=== PATIENT | male | born 1955 | race Caucasian/White ===

== ENCOUNTER 2020-02-25 14:15 | Inpatient (IN) ==
[2020-02-25] MEDS ORDERED: SODIUM CHLORIDE 0.9% 1,000 ML IV STA (15:02)
[2020-02-25 15:26] LABS: Basophils # 0.1 10*3/uL (0.0-0.2); Basophils % 0.6 % (0.0-0.8); Eosinophils # 0.5 10*3/uL (0.0-0.87); Eosinophils % 3.7 % (0.00-10.9); Hematocrit 43.9 VOL% (42.0-52.0); Hemoglobin 14.7 GM/DL (14.0-18.0); Immature Granulocytes % 2.3 %; Immature Granulocytes Absolute 0.29 #; Lymphocytes # 2.3 10*3/uL (1.4-4.0); Lymphocytes % 18.2 % (21.2-54.2); Mean Corpuscular HGB Conc 33.5 GM/DL (32-36); Mean Corpuscular Volume 91.5 FL (87-102); Mean Platelet Volume 10.9 FL (9.6-12.0); Monocytes % 10.2 % (1.7-12.7); Platelet Count 436 T/CUMM (130-400); Red Cell Distribution Width 13.7 % (9.3-17.3); White Blood Count 12.4 T/CUMM (4-12)
[2020-02-25 16:15] LABS: Albumin 2.2 G/DL (3.4-5.0); Bilirubin,Total 0.6 MG/DL (0.2-1.0); Calcium 8.3 MG/DL (8.5-10.1); Ferritin 1001.1 ng/ml (26-388); Potassium 4.4 MMOL/L (3.5-5.1); Total Protein 6.8 G/DL (6.4-8.3)
[2020-02-25] MEDS ORDERED: AZITHROMYCIN INJ 500 MG in SODIUM CHLORIDE 0.9% 250 ML IV ONE (17:33)
[2020-02-25] MEDS ORDERED: DEXAMETHASONE 10 MG/1 ML VIAL IV STA (17:38)
[2020-02-25] MEDS ORDERED: ACETAMINOPHEN 325 MG TABLET PO PRN (17:40)
[2020-02-25] MEDS ORDERED: MAGNESIUM HYDROXIDE SUSP 30 ML UDCUP PO PRN (17:40)
[2020-02-25] MEDS ORDERED: GLUCAGON 1 MG VIAL IM PRN (17:43)
[2020-02-25] MEDS ORDERED: ALBUTEROL 2.5 MG/3 ML NEB RESP TX PRN (17:43)
[2020-02-25] MEDS ORDERED: ONDANSETRON 4 MG/2 ML VIAL IV PRN (17:43)
[2020-02-25] MEDS ORDERED: DEXTROSE 50% 25 GM/50 ML VIAL IV PRN (17:43)
[2020-02-25] MEDS ORDERED: ENOXAPARIN 40 MG/0.4 ML SYRINGE SUBCUT SCH (18:00)
[2020-02-25] MEDS: ALBUTEROL/IPRATROPIUM 3 ML NEB RESP TX SCH (19:45)
[2020-02-25] MEDS: GABAPENTIN 100 MG CAPSULE PO SCH (20:28)
[2020-02-25] MEDS: ASCORBIC ACID 500 MG TABLET PO SCH (20:28)
[2020-02-25] MEDS: FAMOTIDINE 20 MG TABLET PO SCH (20:28)
[2020-02-25] MEDS: DOXYCYCLINE HYCLATE INJ 100 MG in SODIUM CHLORIDE 0.9% 100 ML IV SCH (20:29)
[2020-02-25] MEDS ORDERED: ENOXAPARIN 100 MG/ML SYRINGE SUBCUT SCH (21:00)
[2020-02-25] MEDS ORDERED: NON-FORMULARY MEDICATION (Amino Acids-Protein Hydrolys [Pro-Stat Sugar Free] 15-100 gram-k PO SCH (21:00)
[2020-02-26] MEDS: ALBUTEROL/IPRATROPIUM 3 ML NEB RESP TX SCH ×4 (01:43→19:39)
[2020-02-26 05:44] LABS: Basophils % 0.4 % (0.0-0.8); Eosinophils # 0.4 10*3/uL (0.0-0.87); Eosinophils % 3.7 % (0.00-10.9); Hematocrit 41.2 VOL% (42.0-52.0); Hemoglobin 13.6 GM/DL (14.0-18.0); Immature Granulocytes % 1.9 %; Immature Granulocytes Absolute 0.21 #; Lymphocytes # 2.2 10*3/uL (1.4-4.0); Lymphocytes % 20.1 % (21.2-54.2); Mean Corpuscular Volume 92.6 FL (87-102); Mean Platelet Volume 10.5 FL (9.6-12.0); Monocytes % 10.7 % (1.7-12.7); Neutrophils % 63.2 % (38.7-73.9); Platelet Count 434 T/CUMM (130-400); Red Blood Count 4.45 MC/CUMM (3.8-5.5); Red Cell Distribution Width 13.7 % (9.3-17.3); White Blood Count 10.9 T/CUMM (4-12)
[2020-02-26 06:04] LABS: Calcium 8.2 MG/DL (8.5-10.1); Osmolality,Calculated 276.7 MOS/KG (273-304); Potassium 4.2 MMOL/L (3.5-5.1)
[2020-02-26] MEDS ORDERED: FUROSEMIDE 40 MG/4 ML VIAL IV ONE (08:30)
[2020-02-26] MEDS ORDERED: RAMIPRIL 10 MG PO SCH (09:00)
[2020-02-26] MEDS: ZINC GLUCONATE 50 MG TABLET PO SCH (09:41)
[2020-02-26] MEDS: DOCUSATE SODIUM 100 MG CAPSULE PO SCH (09:41)
[2020-02-26] MEDS: FINASTERIDE 5 MG TABLET PO SCH (09:42)
[2020-02-26] MEDS: ASPIRIN EC 81 MG TABLET PO SCH (09:42)
[2020-02-26] MEDS: GABAPENTIN 100 MG CAPSULE PO SCH ×4 (09:42→20:07)
[2020-02-26] MEDS: SENNA 8.6 MG TABLET PO SCH (09:42)
[2020-02-26] MEDS: FAMOTIDINE 20 MG TABLET PO SCH ×2 (09:42→20:07)
[2020-02-26] MEDS: CALCIUM (CARBONATE)/VITAMIN D 500 MG-200 UNIT TABLET PO SCH (09:42)
[2020-02-26] MEDS: ESCITALOPRAM 10 MG TABLET PO SCH (09:43)
[2020-02-26] MEDS: CHOLECALCIFEROL 1,000 UNIT TABLET PO SCH (09:43)
[2020-02-26] MEDS: CETIRIZINE 10 MG TABLET PO SCH (09:43)
[2020-02-26] MEDS: ATORVASTATIN 20 MG TABLET PO SCH (09:43)
[2020-02-26] MEDS: DEXAMETHASONE 4 MG/1 ML VIAL IV SCH (09:44)
[2020-02-26] MEDS: TAMSULOSIN 0.4 MG CAPSULE PO SCH (09:44)
[2020-02-26] MEDS: ASCORBIC ACID 500 MG TABLET PO SCH ×2 (09:44→20:07)
[2020-02-26] MEDS: ENOXAPARIN 40 MG/0.4 ML SYRINGE SUBCUT SCH ×2 (09:46→20:07)
[2020-02-26] MEDS: DONEPEZIL 10 MG TABLET PO SCH (10:05)
[2020-02-26] MEDS: MEMANTINE 10 MG TABLET PO SCH ×2 (10:05→20:07)
[2020-02-26] MEDS: DOXYCYCLINE HYCLATE INJ 100 MG in SODIUM CHLORIDE 0.9% 100 ML IV SCH ×2 (10:10→20:08)
[2020-02-27] MEDS: ALBUTEROL/IPRATROPIUM 3 ML NEB RESP TX SCH ×4 (00:30→20:17)
[2020-02-27 05:33] LABS: Basophils % 0.2 % (0.0-0.8); Eosinophils # 0.1 10*3/uL (0.0-0.87); Eosinophils % 1.1 % (0.00-10.9); Hematocrit 43.2 VOL% (42.0-52.0); Hemoglobin 14.4 GM/DL (14.0-18.0); Immature Granulocytes % 1.2 %; Immature Granulocytes Absolute 0.15 #; Mean Corpuscular HGB Conc 33.3 GM/DL (32-36); Mean Corpuscular Volume 91.1 FL (87-102); Mean Platelet Volume 10.5 FL (9.6-12.0); Monocytes % 9.3 % (1.7-12.7); Neutrophils % 72.2 % (38.7-73.9); Platelet Count 450 T/CUMM (130-400); Red Blood Count 4.74 MC/CUMM (3.8-5.5); Red Cell Distribution Width 13.6 % (9.3-17.3); White Blood Count 12.7 T/CUMM (4-12)
[2020-02-27 06:00] LABS: Platelet Estimate Normal
[2020-02-27 06:01] LABS: Anisocytosis Slight
[2020-02-27 06:08] LABS: Calcium 9.3 MG/DL (8.5-10.1)
[2020-02-27] MEDS: ENOXAPARIN 40 MG/0.4 ML SYRINGE SUBCUT SCH ×2 (09:37→21:39)
[2020-02-27] MEDS: ESCITALOPRAM 10 MG TABLET PO SCH (09:37)
[2020-02-27] MEDS: ZINC GLUCONATE 50 MG TABLET PO SCH (09:37)
[2020-02-27] MEDS: ASPIRIN EC 81 MG TABLET PO SCH (09:38)
[2020-02-27] MEDS: SENNA 8.6 MG TABLET PO SCH (09:38)
[2020-02-27] MEDS: CHOLECALCIFEROL 1,000 UNIT TABLET PO SCH (09:38)
[2020-02-27] MEDS: DOCUSATE SODIUM 100 MG CAPSULE PO SCH (09:39)
[2020-02-27] MEDS: CALCIUM (CARBONATE)/VITAMIN D 500 MG-200 UNIT TABLET PO SCH (09:39)
[2020-02-27] MEDS: FAMOTIDINE 20 MG TABLET PO SCH ×2 (09:39→21:36)
[2020-02-27] MEDS: FINASTERIDE 5 MG TABLET PO SCH (09:39)
[2020-02-27] MEDS: GABAPENTIN 100 MG CAPSULE PO SCH ×4 (09:40→21:36)
[2020-02-27] MEDS: ATORVASTATIN 20 MG TABLET PO SCH (09:40)
[2020-02-27] MEDS: CETIRIZINE 10 MG TABLET PO SCH (09:40)
[2020-02-27] MEDS: DEXAMETHASONE 4 MG/1 ML VIAL IV SCH (09:40)
[2020-02-27] MEDS: MEMANTINE 10 MG TABLET PO SCH ×2 (09:40→21:36)
[2020-02-27] MEDS: TAMSULOSIN 0.4 MG CAPSULE PO SCH (09:40)
[2020-02-27] MEDS: DONEPEZIL 10 MG TABLET PO SCH (09:40)
[2020-02-27] MEDS: ASCORBIC ACID 500 MG TABLET PO SCH ×2 (09:40→21:36)
[2020-02-27] MEDS: DOXYCYCLINE HYCLATE INJ 100 MG in SODIUM CHLORIDE 0.9% 100 ML IV SCH ×2 (09:45→21:40)
[2020-02-28] MEDS: ALBUTEROL/IPRATROPIUM 3 ML NEB RESP TX SCH ×4 (01:50→18:46)
[2020-02-28 04:10] LABS: Basophils % 0.2 % (0.0-0.8); Eosinophils % 0.2 % (0.00-10.9); Hemoglobin 13.8 GM/DL (14.0-18.0); Immature Granulocytes % 1.1 %; Immature Granulocytes Absolute 0.13 #; Lymphocytes # 1.5 10*3/uL (1.4-4.0); Mean Corpuscular HGB Conc 32.9 GM/DL (32-36); Mean Corpuscular Volume 92.3 FL (87-102); Mean Platelet Volume 10.5 FL (9.6-12.0); Monocytes % 9.5 % (1.7-12.7); Platelet Count 373 T/CUMM (130-400); Red Blood Count 4.55 MC/CUMM (3.8-5.5); Red Cell Distribution Width 13.3 % (9.3-17.3); White Blood Count 12.4 T/CUMM (4-12)
[2020-02-28 04:27] LABS: Calcium 8.7 MG/DL (8.5-10.1); Potassium 4.6 MMOL/L (3.5-5.1)
[2020-02-28] MEDS: ENOXAPARIN 40 MG/0.4 ML SYRINGE SUBCUT SCH ×2 (10:08→21:37)
[2020-02-28] MEDS: DEXAMETHASONE 4 MG/1 ML VIAL IV SCH (10:08)
[2020-02-28] MEDS: SENNA 8.6 MG TABLET PO SCH (10:11)
[2020-02-28] MEDS: ZINC GLUCONATE 50 MG TABLET PO SCH (10:11)
[2020-02-28] MEDS: CHOLECALCIFEROL 1,000 UNIT TABLET PO SCH (10:11)
[2020-02-28] MEDS: CALCIUM (CARBONATE)/VITAMIN D 500 MG-200 UNIT TABLET PO SCH (10:11)
[2020-02-28] MEDS: ASPIRIN EC 81 MG TABLET PO SCH (10:12)
[2020-02-28] MEDS: DOCUSATE SODIUM 100 MG CAPSULE PO SCH (10:12)
[2020-02-28] MEDS: MEMANTINE 10 MG TABLET PO SCH ×2 (10:12→21:35)
[2020-02-28] MEDS: FAMOTIDINE 20 MG TABLET PO SCH ×2 (10:12→21:35)
[2020-02-28] MEDS: TAMSULOSIN 0.4 MG CAPSULE PO SCH (10:12)
[2020-02-28] MEDS: FINASTERIDE 5 MG TABLET PO SCH (10:12)
[2020-02-28] MEDS: ESCITALOPRAM 10 MG TABLET PO SCH (10:12)
[2020-02-28] MEDS: ASCORBIC ACID 500 MG TABLET PO SCH ×2 (10:13→21:35)
[2020-02-28] MEDS: DONEPEZIL 10 MG TABLET PO SCH (10:13)
[2020-02-28] MEDS: GABAPENTIN 100 MG CAPSULE PO SCH ×4 (10:13→21:35)
[2020-02-28] MEDS: ATORVASTATIN 20 MG TABLET PO SCH (10:13)
[2020-02-28] MEDS: CETIRIZINE 10 MG TABLET PO SCH (10:13)
[2020-02-28] MEDS: DOXYCYCLINE HYCLATE INJ 100 MG in SODIUM CHLORIDE 0.9% 100 ML IV SCH ×2 (10:24→21:41)
[2020-02-29] MEDS: ALBUTEROL/IPRATROPIUM 3 ML NEB RESP TX SCH ×3 (01:41→15:28)
[2020-02-29 05:59] LABS: Basophils % 0.1 % (0.0-0.8); Eosinophils % 0.3 % (0.00-10.9); Hematocrit 38.4 VOL% (42.0-52.0); Hemoglobin 12.8 GM/DL (14.0-18.0); Immature Granulocytes % 0.6 %; Immature Granulocytes Absolute 0.09 #; Lymphocytes # 1.8 10*3/uL (1.4-4.0); Lymphocytes % 12.8 % (21.2-54.2); Mean Corpuscular HGB Conc 33.3 GM/DL (32-36); Mean Corpuscular Volume 91.4 FL (87-102); Mean Platelet Volume 10.3 FL (9.6-12.0); Monocytes % 9.8 % (1.7-12.7); Neutrophils % 76.4 % (38.7-73.9); Platelet Count 337 T/CUMM (130-400); Red Cell Distribution Width 13.3 % (9.3-17.3); White Blood Count 14.2 T/CUMM (4-12)
[2020-02-29 06:28] LABS: Calcium 8.5 MG/DL (8.5-10.1); Osmolality,Calculated 275.7 MOS/KG (273-304); Potassium 4.1 MMOL/L (3.5-5.1)
[2020-02-29 06:53] LABS: Platelet Estimate Adequate
[2020-02-29] MEDS: DEXAMETHASONE 4 MG/1 ML VIAL IV SCH (09:47)
[2020-02-29] MEDS: MEMANTINE 10 MG TABLET PO SCH (09:52)
[2020-02-29] MEDS: SENNA 8.6 MG TABLET PO SCH (09:52)
[2020-02-29] MEDS: ENOXAPARIN 40 MG/0.4 ML SYRINGE SUBCUT SCH (09:52)
[2020-02-29] MEDS: FAMOTIDINE 20 MG TABLET PO SCH (09:52)
[2020-02-29] MEDS: ESCITALOPRAM 10 MG TABLET PO SCH (09:52)
[2020-02-29] MEDS: DOCUSATE SODIUM 100 MG CAPSULE PO SCH (09:52)
[2020-02-29] MEDS: ASPIRIN EC 81 MG TABLET PO SCH (09:53)
[2020-02-29] MEDS: CETIRIZINE 10 MG TABLET PO SCH (09:53)
[2020-02-29] MEDS: ASCORBIC ACID 500 MG TABLET PO SCH (09:53)
[2020-02-29] MEDS: DONEPEZIL 10 MG TABLET PO SCH (09:53)
[2020-02-29] MEDS: CALCIUM (CARBONATE)/VITAMIN D 500 MG-200 UNIT TABLET PO SCH (09:53)
[2020-02-29] MEDS: ZINC GLUCONATE 50 MG TABLET PO SCH (09:53)
[2020-02-29] MEDS: FINASTERIDE 5 MG TABLET PO SCH (09:53)
[2020-02-29] MEDS: GABAPENTIN 100 MG CAPSULE PO SCH ×3 (09:53→16:10)
[2020-02-29] MEDS: TAMSULOSIN 0.4 MG CAPSULE PO SCH (09:53)
[2020-02-29] MEDS: CHOLECALCIFEROL 1,000 UNIT TABLET PO SCH (09:53)
[2020-02-29] MEDS: ATORVASTATIN 20 MG TABLET PO SCH (09:53)
[2020-02-29] MEDS: DOXYCYCLINE HYCLATE INJ 100 MG in SODIUM CHLORIDE 0.9% 100 ML IV SCH (09:54)
[2020-02-29] MEDS ORDERED: predniSONE 20 MG TABLET PO SCH (10:00)
[2020-02-29 16:28] VITALS: BP 126/80
[2020-03-03] MEDS ORDERED: ERGOCALCIFEROL 50,000 UNIT CAPSULE PO SCH (09:00)
== END 2020-02-29 16:34 | DRG 193 ==
LOC: N.ED 14:15 → N.EDINP 17:31 → SUATTDRO 17:31 → N.3E 18:28
PROVIDERS: ADMIT Internal Medicine; ATTEND Internal Medicine

== ENCOUNTER 2020-05-10 12:19 | Inpatient (IN) ==
[2020-05-10 15:11] LABS: Basophils # 0.1 10*3/uL (0.0-0.2); Basophils % 0.5 % (0.0-0.8); Eosinophils # 0.1 10*3/uL (0.0-0.87); Eosinophils % 0.4 % (0.00-10.9); Hematocrit 43.9 VOL% (42.0-52.0); Hemoglobin 13.8 GM/DL (14.0-18.0); Immature Granulocytes % 0.6 %; Lymphocytes # 1.2 10*3/uL (1.4-4.0); Lymphocytes % 7.3 % (21.2-54.2); Mean Corpuscular HGB Conc 31.4 GM/DL (32-36); Mean Corpuscular Volume 97.6 FL (87-102); Mean Platelet Volume 11.4 FL (9.6-12.0); Monocytes % 7.7 % (1.7-12.7); Neutrophils % 83.5 % (38.7-73.9); Platelet Count 253 T/CUMM (130-400); Red Cell Distribution Width 13.6 % (9.3-17.3); White Blood Count 16.6 T/CUMM (4-12)
[2020-05-10 15:12] LABS: Alanine Aminotransferase 15 U/L (16-61); Albumin 2.8 G/DL (3.4-5.0); Alkaline Phosphatase 83 U/L (45-117); Amylase 42 U/L (25-115); Aspartate Amino Transferase 15 U/L (0-37); Bilirubin,Total < 0.39 MG/DL (0.2-1.0); Blood Urea Nitrogen 17 MG/DL (7-18); Calcium 8.9 MG/DL (8.5-10.1); Carbon Dioxide 23 MMOL/L (21-32); Estimated Glom Filtration Rate 110 ML/MIN; Glucose 100 MG/DL (74-106); Osmolality,Calculated 284.1 MOS/KG (273-304); Potassium 3.6 MMOL/L (3.5-5.1); Sodium 142 MMOL/L (136-145); Total Protein 6.1 G/DL (6.4-8.2)
[2020-05-10] MEDS ORDERED: SODIUM CHLORIDE 0.9% 1,000 ML IV STA (15:43)
[2020-05-10 16:25] LABS: Bilirubin,Urine Negative (Negative); Blood, Urine Small mg/dL (Negative); Glucose,Urine (UA) Negative (Negative); Ketones,Urine 5 mg/dL (Negative); Mucus,Urine Many /LPF (Occasional); Nitrite,Urine Negative (Negative); Protein,Urine 30 MG/DL; RBC,Urine 45 /HPF (0-4); Urine Appearance CLOUDY (Clear); Urine Color Yellow (Yellow); Urine Specific Gravity 1.057 (1.001-1.035); Urine Urobilinogen < 2.0 EU/DL (0.2-1.0); WBC,Urine 477 /HPF (0-6)
[2020-05-10] MEDS ORDERED: cefTRIAXone 1,000 MG in SODIUM CHLORIDE 0.9% 100 ML IV STA (16:36)
[2020-05-10] MEDS ORDERED: GLUCAGON 1 MG VIAL IM PRN (17:35)
[2020-05-10] MEDS ORDERED: LACTULOSE 20 GM/30 ML UDCUP PO PRN (17:35)
[2020-05-10] MEDS ORDERED: ACETAMINOPHEN 325 MG TABLET PO PRN (17:35)
[2020-05-10] MEDS ORDERED: DEXTROSE 50% 25 GM/50 ML VIAL IV PRN (17:35)
[2020-05-10] MEDS ORDERED: ONDANSETRON 4 MG/2 ML VIAL IV PRN (17:35)
[2020-05-10] MEDS: SODIUM CHLORIDE 0.9% 1,000 ML IV SCH (21:00)
[2020-05-10] MEDS: ENOXAPARIN 40 MG/0.4 ML SYRINGE SUBCUT SCH (21:00)
[2020-05-10] MEDS: GABAPENTIN 100 MG CAPSULE PO SCH (21:37)
[2020-05-11 06:09] LABS: Basophils # 0.1 10*3/uL (0.0-0.2); Basophils % 0.9 % (0.0-0.8); Eosinophils # 0.5 10*3/uL (0.0-0.87); Hematocrit 42.8 VOL% (42.0-52.0); Hemoglobin 13.7 GM/DL (14.0-18.0); Immature Granulocytes % 0.3 %; Immature Granulocytes Absolute 0.03 #; Lymphocytes % 22.2 % (21.2-54.2); Mean Corpuscular Volume 97.1 FL (87-102); Mean Platelet Volume 11.1 FL (9.6-12.0); Monocytes % 12.2 % (1.7-12.7); Neutrophils % 59.4 % (38.7-73.9); Platelet Count 227 T/CUMM (130-400); Red Blood Count 4.41 MC/CUMM (3.8-5.5); Red Cell Distribution Width 13.6 % (9.3-17.3); White Blood Count 8.9 T/CUMM (4-12)
[2020-05-11 06:43] LABS: Calcium 8.2 MG/DL (8.5-10.1); Potassium 3.9 MMOL/L (3.5-5.1); Thyroid Stimulating Hormone 0.473 uIU/ml (0.358-3.74)
[2020-05-11] MEDS: FINASTERIDE 5 MG TABLET PO SCH (08:48)
[2020-05-11] MEDS: TAMSULOSIN 0.4 MG CAPSULE PO SCH (08:48)
[2020-05-11] MEDS: GABAPENTIN 100 MG CAPSULE PO SCH ×4 (08:48→21:30)
[2020-05-11] MEDS: ATORVASTATIN 20 MG TABLET PO SCH (08:48)
[2020-05-11] MEDS: MEMANTINE 10 MG TABLET PO SCH ×2 (08:48→21:29)
[2020-05-11] MEDS: ASPIRIN EC 81 MG TABLET PO SCH (08:48)
[2020-05-11] MEDS: PANTOPRAZOLE 40 MG TABLET PO SCH (08:49)
[2020-05-11] MEDS: DONEPEZIL 10 MG TABLET PO SCH (08:49)
[2020-05-11] MEDS: SODIUM CHLORIDE 0.9% 1,000 ML IV SCH (08:55)
[2020-05-11] MEDS ORDERED: LIDOCAINE 1% 20 ML VIAL IM ONE (10:04)
[2020-05-11] MEDS: cefTRIAXone 1,000 MG VIAL IM SCH (11:03)
[2020-05-11] MEDS ORDERED: ALPRAZolam 0.5 MG TABLET PO PRN (14:17)
[2020-05-11] MEDS ORDERED: LORazepam 2 MG/1 ML VIAL IM PRN (14:18)
[2020-05-11] MEDS ORDERED: cefTRIAXone 1,000 MG in SYRINGE 1 EACH IV SCH (18:00)
[2020-05-11] MEDS: ENOXAPARIN 40 MG/0.4 ML SYRINGE SUBCUT SCH (21:27)
[2020-05-11] MEDS: ASCORBIC ACID 500 MG TABLET PO SCH (21:28)
[2020-05-12 05:37] LABS: Basophils # 0.1 10*3/uL (0.0-0.2); Eosinophils # 0.5 10*3/uL (0.0-0.87); Eosinophils % 6.5 % (0.00-10.9); Hematocrit 42.3 VOL% (42.0-52.0); Hemoglobin 13.1 GM/DL (14.0-18.0); Immature Granulocytes % 0.4 %; Immature Granulocytes Absolute 0.03 #; Lymphocytes # 1.9 10*3/uL (1.4-4.0); Lymphocytes % 23.8 % (21.2-54.2); Mean Corpuscular Volume 98.4 FL (87-102); Mean Platelet Volume 11.2 FL (9.6-12.0); Monocytes % 15.8 % (1.7-12.7); Neutrophils % 52.5 % (38.7-73.9); Platelet Count 238 T/CUMM (130-400); Red Cell Distribution Width 13.5 % (9.3-17.3)
[2020-05-12 06:02] LABS: Osmolality,Calculated 274.5 MOS/KG (273-304); Potassium 4.1 MMOL/L (3.5-5.1)
[2020-05-12 06:06] LABS: Atypical Lymphocytes Few; Band Neutrophils 1 % (0-10); Eosinophils 6 % (0-10); Hypochromasia 1+; Lymphocytes 30 % (20-55); Microcytosis Slight; Segmented Neutrophils 55 % (50-85); Total Cells Counted 100
[2020-05-12 06:07] LABS: Platelet Estimate Normal
[2020-05-12] MEDS: ASPIRIN EC 81 MG TABLET PO SCH (10:47)
[2020-05-12] MEDS: DONEPEZIL 10 MG TABLET PO SCH (10:47)
[2020-05-12] MEDS: TAMSULOSIN 0.4 MG CAPSULE PO SCH (10:47)
[2020-05-12] MEDS: FINASTERIDE 5 MG TABLET PO SCH (10:47)
[2020-05-12] MEDS: ATORVASTATIN 20 MG TABLET PO SCH (10:47)
[2020-05-12] MEDS: ASCORBIC ACID 500 MG TABLET PO SCH ×2 (10:47→20:56)
[2020-05-12] MEDS: CHOLECALCIFEROL 5,000 UNIT TABLET PO SCH (10:47)
[2020-05-12] MEDS: GABAPENTIN 100 MG CAPSULE PO SCH ×4 (10:47→20:56)
[2020-05-12] MEDS: MEMANTINE 10 MG TABLET PO SCH ×2 (10:48→20:56)
[2020-05-12] MEDS: cefTRIAXone 1,000 MG VIAL IM SCH (10:48)
[2020-05-12] MEDS: PANTOPRAZOLE 40 MG TABLET PO SCH (10:48)
[2020-05-12] MEDS: ENOXAPARIN 40 MG/0.4 ML SYRINGE SUBCUT SCH (20:56)
[2020-05-13] MEDS: ASPIRIN EC 81 MG TABLET PO SCH (10:14)
[2020-05-13] MEDS: CHOLECALCIFEROL 5,000 UNIT TABLET PO SCH (10:14)
[2020-05-13] MEDS: GABAPENTIN 100 MG CAPSULE PO SCH ×4 (10:14→20:48)
[2020-05-13] MEDS: PANTOPRAZOLE 40 MG TABLET PO SCH (10:14)
[2020-05-13] MEDS: ASCORBIC ACID 500 MG TABLET PO SCH ×2 (10:14→20:48)
[2020-05-13] MEDS: DONEPEZIL 10 MG TABLET PO SCH (10:14)
[2020-05-13] MEDS: TAMSULOSIN 0.4 MG CAPSULE PO SCH (10:15)
[2020-05-13] MEDS: cefTRIAXone 1,000 MG VIAL IM SCH (10:15)
[2020-05-13] MEDS: ATORVASTATIN 20 MG TABLET PO SCH (10:15)
[2020-05-13] MEDS: MEMANTINE 10 MG TABLET PO SCH ×2 (10:15→20:48)
[2020-05-13] MEDS: FINASTERIDE 5 MG TABLET PO SCH (10:22)
[2020-05-13] MEDS: SULFAMETHOX/TRIMETHOPRIM 800-160 MG TABLET PO SCH (20:47)
[2020-05-13] MEDS: ENOXAPARIN 40 MG/0.4 ML SYRINGE SUBCUT SCH (20:47)
[2020-05-13] MEDS ORDERED: VANCOMYCIN INJ 1,500 MG in SODIUM CHLORIDE 0.9% 500 ML IV SCH (21:00)
[2020-05-14 05:40] LABS: Basophils # 0.1 10*3/uL (0.0-0.2); Eosinophils # 0.4 10*3/uL (0.0-0.87); Eosinophils % 5.2 % (0.00-10.9); Hematocrit 43.1 VOL% (42.0-52.0); Hemoglobin 13.7 GM/DL (14.0-18.0); Immature Granulocytes % 0.2 %; Immature Granulocytes Absolute 0.02 #; Lymphocytes # 1.6 10*3/uL (1.4-4.0); Lymphocytes % 19.6 % (21.2-54.2); Mean Corpuscular HGB Conc 31.8 GM/DL (32-36); Mean Corpuscular Volume 96.2 FL (87-102); Mean Platelet Volume 11.1 FL (9.6-12.0); Monocytes % 12.9 % (1.7-12.7); Neutrophils % 61.1 % (38.7-73.9); Platelet Count 259 T/CUMM (130-400); Red Blood Count 4.48 MC/CUMM (3.8-5.5); Red Cell Distribution Width 13.2 % (9.3-17.3); White Blood Count 8.2 T/CUMM (4-12)
[2020-05-14 05:48] LABS: Calcium 8.9 MG/DL (8.5-10.1); Osmolality,Calculated 272.7 MOS/KG (273-304); Potassium 3.6 MMOL/L (3.5-5.1)
[2020-05-14] MEDS: ASPIRIN EC 81 MG TABLET PO SCH (09:23)
[2020-05-14] MEDS: DONEPEZIL 10 MG TABLET PO SCH (09:24)
[2020-05-14] MEDS: ATORVASTATIN 20 MG TABLET PO SCH (09:24)
[2020-05-14] MEDS: ASCORBIC ACID 500 MG TABLET PO SCH (09:24)
[2020-05-14] MEDS: SULFAMETHOX/TRIMETHOPRIM 800-160 MG TABLET PO SCH (09:24)
[2020-05-14] MEDS: MEMANTINE 10 MG TABLET PO SCH (09:24)
[2020-05-14] MEDS: GABAPENTIN 100 MG CAPSULE PO SCH ×2 (09:24→15:03)
[2020-05-14] MEDS: TAMSULOSIN 0.4 MG CAPSULE PO SCH (09:24)
[2020-05-14] MEDS: PANTOPRAZOLE 40 MG TABLET PO SCH (09:25)
[2020-05-14] MEDS: FINASTERIDE 5 MG TABLET PO SCH (09:25)
[2020-05-14] MEDS: CHOLECALCIFEROL 5,000 UNIT TABLET PO SCH (09:30)
[2020-05-14] MEDS: cefTRIAXone 1,000 MG VIAL IM SCH (09:32)
[2020-05-14 12:07] VITALS: BP 129/81
== END 2020-05-14 15:21 | DRG 689 ==
LOC: EDBD → EDUNIT# → N.ED 12:19 → N.EDINP 17:35 → SUATTDRO 17:35 → N.EDINP 22:39 → N.TELES 23:35
PROVIDERS: ADMIT Internal Medicine; ATTEND Internal Medicine